=== PATIENT | female | born 1940 | race Caucasian/White ===

== ENCOUNTER 2016-12-15 18:41 | Emergency (ER) | payer MEDICARE, OTHER ==
[2016-12-15] MEDS ORDERED: methylPREDNISolone Sodium Succinate 125 MG/2 ML SDV IVPUSH ONE ×2 (18:55→18:59)
[2016-12-15] MEDS ORDERED: Sodium Chloride 0.9% 500 ML IV ONE (18:59)
[2016-12-15] MEDS ORDERED: diphenhydrAMINE 50 MG/ML SDV IVPUSH STA (18:59)
[2016-12-15] MEDS ORDERED: Famotidine/Normal Saline 20 MG in Premix Bag 1 BAG IV ONE (18:59)
[2016-12-15] MEDS ORDERED: hydrOXYzine HCl 50 MG/ML SDV IM ONE (19:01)
--- NOTE | 2016-12-15 19:06 | EDM.PDOC ---
ED HPI GENERAL MEDICAL PROBLEM - General Stated Complaint: ALLERGIC REACTION TO BEE STING Time Seen by Provider: 12/15/16 18:41 Source of Information: Reports: Patient, Family History Limitations: Reports: No Limitations - History of Present Illness INITIAL COMMENTS - FREE TEXT/NARRATIVE: 76 y.o.w.f came to the ed after she was stung by a bee and noticed she has a rash with itching and swelling of her left hand/arm. Pt has a h/o lupus E. Pt was seen in the clinic and transferred to the ed. Pt was light headed and dizzy , her BP was 88/50 but improved after she was in supine position. When she arrived, BP was 105/87. No SOB. no other acute medical issues. Onset: Today Onset Date: 12/15/16 Onset Time: 17:20 Duration: Hour(s): Location: Reports: Upper Extremity, Left Quality: Reports: Ache, Burning Severity: Mild Improves with: Reports: None Worsens with: Reports: None Associated Symptoms: Reports: Rash, Other (felt dizzy) - Related Data Allergies Allergy/AdvReac Type Severity Reaction Status Date / Time latex Allergy Hives Verified 12/15/16 18:57 Home Meds: Home Meds Famotidine [Pepcid] 20 mg PO DAILY #4 tablet 12/15/16 [Rx] hydrOXYzine Pamoate [Vistaril] 50 mg PO Q6H PRN #20 cap 12/15/16 [Rx] ED ROS GENERAL - Review of Systems Review Of Systems: See Below Constitutional: Reports: No Symptoms HEENT: Reports: No Symptoms Respiratory: Reports: No Symptoms Cardiovascular: Reports: Lightheadedness Endocrine: Reports: No Symptoms GI/Abdominal: Reports: No Symptoms : Reports: No Symptoms Musculoskeletal: Reports: No Symptoms Skin: Reports: Pruritis, Rash, Erythema Neurological: Reports: No Symptoms Psychiatric: Reports: No Symptoms Hematologic/Lymphatic: Reports: No Symptoms Immunologic: Reports: No Symptoms ED EXAM, ANIMAL BITE - Physical Exam Exam: See Below Exam Limited By: No Limitations General Appearance: Alert, WD/WN, Mild Distress, Thin Eye Exam: Bilateral Eye: Normal Inspection Ears: Normal External Exam Nose: Normal Inspection Throat/Mouth: Normal Inspection, Normal Lips Head: Atraumatic, Normocephalic Neck: Normal Inspection, Supple, Non-Tender, Full Range of Motion Respiratory/Chest: No Respiratory Distress, Lungs Clear, Normal Breath Sounds, No Accessory Muscle Use, Chest Non-Tender Cardiovascular: Normal Peripheral Pulses, Regular Rate, Rhythm, No Edema, No Gallop, No JVD, No Murmur Peripheral Pulses: 1+: Femoral (L), Femoral (R) GI/Abdominal: Normal Bowel Sounds, Soft, Non-Tender (Female) Exam: Deferred Rectal (Female) Exam: Deferred Back Exam: Normal Inspection, Full Range of Motion Extremities: Normal Inspection, Normal Range of Motion, Non-Tender Neurological: Alert, Oriented, CN II-XII Intact, Normal Cognition, No Motor/ Sensory Deficits Psychiatric: Normal Affect, Normal Mood Skin Exam: Rash Lymphadenopathy: Bilateral: No Adenopathy Lymphatic: No Adenopathy Course - Vital Signs Text/Narrative:: 76 y.o.w.f came to the ed after she was stung by a bee and noticed she has a rash with itching and swelling of her left hand/arm. Pt has a h/o lupus E. Pt was seen in the clinic and transferred to the ed. Pt was light headed and dizzy , her BP was 88/50 but improved after she was in supine position. When she arrived, BP was 105/87. No SOB. no other acute medical issues. PE: thin 76 y.o.w.f in NAD left fore arm was edematous, gen hives. Labs: See print out Impression: Urticaria, Dehydration, Bee sting, near syncopy Tx; NS. solumedrol, vistaril and pepsid. Reexam: Improved, was ambulating fine Plan: D/C with instructions Last Recorded V/S: Last Vital Signs Temp 37.2 C 12/15/16 18:41 Pulse 68 12/15/16 20:02 Resp 18 12/15/16 20:02 BP 125/51 L 12/15/16 20:02 Pulse Ox 100 12/15/16 20:02 - Orders/Labs/Meds Labs: Laboratory Tests 12/15/16 12/15/16 12/15/16 Range/Units 19:05 19:05 19:05 WBC 6.4 (4.5-12.0) X10-3/uL RBC 3.24 (3.23-5.20) x10(6)uL Hgb 10.3 L (11.5-15.5) g/dL Hct 31.1 (30.0-51.3) % MCV 96.1 H (80-96) fL MCH 31.9 (27.7-33.6) pg MCHC 33.2 (32.2-35.4) g/dL RDW 15.0 (11.5-15.5) % Plt Count 476 H (125-369) X10(3)uL MPV 8.1 (7.4-10.4) fL Neut % (Auto) 74.0 (46-82) % Lymph % (Auto) 20.4 (13-37) % Levy % (Auto) 4.5 (4-12) % Eos % (Auto) 0 L (1.0-5.0) % Baso % (Auto) 1 (0-2) % Neut # (Auto) 4.7 (1.6-8.3) # Lymph # (Auto) 1.3 (0.6-5.0) # Levy # (Auto) 0.3 (0.0-1.3) # Eos # (Auto) 0.0 (0.0-0.8) # Baso # (Auto) 0.1 (0.0-0.2) # Sodium 137 (135-145) mmol/L Potassium 3.8 (3.5-5.3) mmol/L Chloride 105 (100-110) mmol/L Carbon Dioxide 22 L (23-29) mmol/L BUN 20 (8-23) mg/dL Creatinine 1.2 (0.6-1.3) mg/dL Est Cr Clr Drug Dosing TNP Estimated GFR (MDRD) 44 L (>60) BUN/Creatinine Ratio 16.7 (9-20) Glucose 132 H (80-116) mg/dL Calcium 8.7 (8.6-10.2) mg/dL B-Natriuretic Peptide 161 H (0-100) pg/mL Meds: Medications Discontinued Medications Generic Name Dose Route Start Last Admin Trade Name Freq PRN Reason Stop Dose Admin Diphenhydramine HCl 25 mg 12/15/16 18:59 12/15/16 19:07 Benadryl IVPUSH 12/15/16 19:00 Not Given ONETIME STA Hydroxyzine HCl 50 mg 12/15/16 19:01 12/15/16 19:19 Vistaril IM 12/15/16 19:02 50 mg ONETIME ONE Administration Famotidine 20 mg/ Premix 50 mls @ 200 mls/hr 12/15/16 18:59 12/15/16 19:16 IV 12/15/16 19:00 200 mls/hr ONETIME ONE Administration Sodium Chloride 500 mls @ 999 mls/hr 12/15/16 18:59 12/15/16 19:15 Normal Saline IV 12/15/16 19:29 999 mls/hr .BOLUS ONE Administration Methylprednisolone Sodium Succinate 125 mg 12/15/16 18:55 12/15/16 18:57 Solu-Medrol IVPUSH 12/15/16 18:56 125 mg ONETIME ONE Administration Methylprednisolone Sodium Succinate 125 mg 12/15/16 18:59 12/15/16 19:07 Solu-Medrol IVPUSH 12/15/16 19:00 Not Given ONETIME ONE Departure - Departure Time of Disposition: 20:06 Disposition: Home, Self-Care 01 Condition: Good Clinical Impression: Urticaria, Vasovagal near syncope, Allergy to bee sting - Discharge Information Prescriptions: Famotidine [Pepcid] 20 mg PO DAILY #4 tablet hydrOXYzine Pamoate [Vistaril] 50 mg PO Q6H PRN #20 cap PRN Reason: itch anbd rash Instructions: Anaphylactic Reaction, [id number], Hives, Sfcv-im-[id number], Bee, Wasp, or Hornet Sting Referrals: Ashwini Johnson PA [Primary Care Provider] - Forms: ED Department Discharge Additional Instructions: Please increase water intake, please take the meds, vistaril, prednison and pepsid, as recommended. please f/u woith your PMD in next 1-3 days, please come back to the ed if your symptoms get worse acutely.
[2016-12-15 20:03] VITALS: BP 125/51
[2016-12-15] MEDS ORDERED: predniSONE 20 MG Tab PO ONE (20:13)
== END 2016-12-15 20:40 | disposition home or self-care (01) ==
LOC: FB.ED 18:41
DX: T63.441A Toxic effect of venom of bees, accidental (unintentional), initial encounter (principal); L50.9 Urticaria, unspecified; R55 Syncope and collapse; E86.0 Dehydration; Z91.040 Latex allergy status; Z79.899 Other long term (current) drug therapy
CPT/HCPCS: 36415; 80048; 83880; 85025; 96361; 96372; 96374; 96375; 99283; A9270; J2930; J3410; J7040

== ENCOUNTER 2019-01-18 06:42 | Day surgery (SDC) | payer MEDICARE, OTHER ==
[2019-01-18] MEDS ORDERED: Lidocaine 2% 5 ML SDV INJECT ONE (06:43)
[2019-01-18] MEDS ORDERED: Propofol 200 MG/20 ML SDV IV ONE ×2 (06:43)
[2019-01-18] MEDS ORDERED: Lidocaine 2% 100 MG/5 ML Syringe IVPUSH ONE (06:43)
[2019-01-18] MEDS ORDERED: Lactated Ringers 1,000 ML IV SCH (06:45)
[2019-01-18] MEDS ORDERED: Sodium Chloride 0.9% 10 ML Syringe FLUSH PRN (06:45)
--- NOTE | 2019-01-18 08:16 | PCM.OPNOTE ---
- General Post-Op/Procedure Note Date of Surgery/Procedure: 01/18/19 Operative Procedure(s): c scope Findings: sigmoid diverticulosis Pre Op Diagnosis: personal hx of colon polyps Post-Op Diagnosis: sigmoid diverticulosis Anesthesia Technique: MAC Primary Surgeon: Peter Benito Anesthesia Provider: Alice Guzman Pathology: none Complications: None Condition: Good Free Text/Narrative:: see dictation
--- NOTE | 2019-01-18 08:40 | OR ---
DATE OF OPERATION: 01/18/2019 SURGEON: Peter Benito MD PROCEDURE PERFORMED: Colonoscopy. PREOPERATIVE DIAGNOSIS: Personal history of colon polyps. POSTOPERATIVE DIAGNOSIS: Sigmoid diverticulosis. INDICATIONS FOR PROCEDURE: This is a 78-year-old white female who presents for followup scope. She has a personal history of colon polyps on recent colonoscopy several years ago, and presents now for followup endoscopy. DESCRIPTION OF OPERATION: After an excellent IV sedation was administered, digital rectal exam was performed. No marked abnormality was noted. Flexible colonoscope was inserted and advanced to the cecum without difficulty. Prep was excellent. Following findings were noted. Ascending colon, unremarkable. Transverse colon, unremarkable. Descending colon, unremarkable. Sigmoid, scattered diverticulosis. Rectum and anus, unremarkable. The patient tolerated the procedure well. RECOMMENDATIONS: Repeat colonoscopy on a p.r.n. basis. /[id number] CHASTITY/ANNIE
--- NOTE | 2019-01-18 09:35 | PREOP ---
ADMISSION DATE: 01/18/2019 CHIEF COMPLAINT: Personal history of colon polyps. HISTORY OF PRESENT ILLNESS: This is a patient who had a colonoscopy 3 years ago, 2 adenomas were removed, recommended to have a followup scope at this time. She is currently without complaints. ALLERGIES: She has an allergy to bee stings and latex. PAST MEDICAL HISTORY: Significant for systemic lupus erythematosus, essential hypertension, rheumatoid arthritis, chronic obstructive pulmonary disease, stress incontinence, morbid obesity, endometrial cancer, history of melena in the past and squamous cell carcinoma in situ. PAST SURGICAL HISTORY: Significant for cholecystectomy, colonoscopy, left total hip replacement, hysterectomy, laparoscopic gastric bypass, laparoscopic salpingo-oophorectomy, laparoscopic total hysterectomy, ORIF of right elbow fracture, and bladder suspension. MEDICATIONS: Include the followin. Ultram 50 mg 4 times a day as needed. 2. She has a 0.3 mg/0.3 mL epinephrine pen. 3. Plaquenil 200 mg tablet. 4. Prednisone 2.5 mg. 5. Sinemet 1/2 tablet for restless legs. 6. Lisinopril-hydrochlorothiazide 10-12.5 mg tablets once daily. 7. She takes an iron tablet. 8. Calcium and vitamin D. 9. Vitamin B12. 10.Apple cider vinegar. REVIEW OF SYSTEMS: Essentially noncontributory with her denying any constitutional, HEENT, eyes, respiratory, cardiovascular, or gastrointestinal issues. PHYSICAL EXAMINATION: VITAL SIGNS: Reviewed, they are stable. HEENT: Grossly within normal limits. LUNGS: Clear to auscultation. HEART: Regular rate and rhythm. ABDOMEN: Soft, nontender. ASSESSMENT: Personal history of colon polyps. PLAN: Colonoscopy. Procedure and risks explained to the patient to include bleeding, infection, and perforation. The patient expresses understanding. She asks us to proceed. /[id number] /MODL
[2019-01-18 11:35] VITALS: BP 137/55; PULSE 59
== END 2019-01-18 09:32 | disposition home or self-care (01) ==
LOC: FB.SDS 06:42
PROVIDERS: ATTEND Surgery
DX: Z12.11 Encounter for screening for malignant neoplasm of colon (principal); K57.30 Diverticulosis of large intestine without perforation or abscess without bleeding; M32.9 Systemic lupus erythematosus, unspecified; I10 Essential (primary) hypertension; M06.9 Rheumatoid arthritis, unspecified; J44.9 Chronic obstructive pulmonary disease, unspecified; Z98.84 Bariatric surgery status; Z79.899 Other long term (current) drug therapy; Z79.52 Long term (current) use of systemic steroids; Z86.010 Personal history of colon polyps; Z91.040 Latex allergy status; Z91.030 Bee allergy status
CPT/HCPCS: J2001; J2704; J7120

== ENCOUNTER 2019-10-28 16:06 | Emergency (ER) | payer MEDICARE, OTHER ==
[2019-10-28] MEDS ORDERED: Loratadine 10 MG Tab PO ONE (16:10)
[2019-10-28] MEDS ORDERED: methylPREDNISolone Sodium Succinate 125 MG/2 ML SDV IV ONE (16:10)
[2019-10-28] MEDS ORDERED: Famotidine 20 MG/2 ML SDV IVPUSH ONE (16:10)
[2019-10-28] MEDS ORDERED: diphenhydrAMINE 50 MG/ML SDV IVPUSH ONE (16:10)
[2019-10-28] MEDS ORDERED: Famotidine/Normal Saline 20 MG/50 ML BAG IV ONE (17:00)
[2019-10-28] MEDS ORDERED: Famotidine 20 MG Tab PO ONE (17:29)
[2019-10-28 18:46] VITALS: PULSE 63
[2019-10-28] MEDS ORDERED: Doxepin 25 MG Cap PO ONE (18:52)
--- NOTE | 2019-10-28 18:59 | EDM.PDOC ---
ED HPI GENERAL MEDICAL PROBLEM - General Chief Complaint: Allergic Reaction Stated Complaint: BEE STING Time Seen by Provider: 10/28/19 16:15 Source of Information: Reports: Patient History Limitations: Reports: No Limitations - History of Present Illness INITIAL COMMENTS - FREE TEXT/NARRATIVE: c/o bee sting outside, stung on R posterior shoulder, did not see bee has epi-pen that is 2y old took no meds, come to urgent care who brought her to ED, arrived 20 min after sting with c/o red and itching and swollen hands no airway issues redness and itch of hands improved 75% altho did not resolve completely after meds here on pred 2.5 mg/d baseline, has RA and lupus - Related Data Allergies Allergy/AdvReac Type Severity Reaction Status Date / Time bee venom protein (honey bee) Allergy Hives Verified 01/18/19 07:26 latex Allergy Rash Verified 01/18/19 07:26 Home Meds: Home Meds Aspirin 81 mg PO DAILY 01/17/19 [History] Vernon/D3/Mag11/Zinc/Message Broker Developer/Mumtaz/Bor [Caltrate 600+D Plus Tablet] 1 each PO QAM 01/17/19 [History] Carbidopa/Levodopa [Sinemet CR 50-200] 0.5 tab PO DAILY 01/17/19 [History] Cholecalciferol (Vitamin D3) [Vitamin D3] 1,000 unit PO DAILY 01/17/19 [History] Cider Vinegar [Apple Cider Vinegar] 300 mg PO DAILY 01/17/19 [History] Cyanocobalamin (Vitamin B12) [Vitamin B12] 1,000 mcg PO DAILY 01/17/19 [History] EPINEPHrine [Epipen] 0.3 mg IM ASDIRECTED PRN 01/17/19 [History] Hydroxychloroquine Sulfate [Plaquenil] 200 mg PO BID 01/17/19 [History] Lisinopril/Hydrochlorothiazide [Lisinopril-Hctz 10-12.5 mg Tab] 1 each PO DAILY 01/17/19 [History] cephALEXin [Keflex] 250 mg PO DAILY 01/17/19 [History] predniSONE [Prednisone] 2.5 mg PO DAILY 01/17/19 [History] traMADol [Ultram] 50 mg PO Q4H PRN 01/17/19 [History] Doxepin [SINEquan] 25 mg PO BEDTIME PRN #3 cap 10/28/19 [Rx] EPINEPHrine [Adrenaclick] 0.3 mg IM DAILY PRN #2 ml 10/28/19 [Rx] Famotidine 20 mg PO DAILY #3 tablet 10/28/19 [Rx] Loratadine 10 mg PO DAILY #3 tablet 10/28/19 [Rx] predniSONE 40 mg PO DAILY #6 tab 10/28/19 [Rx] Past Medical History HEENT History: Reports: Impaired Vision, Other (See Below) Other HEENT History: HYPEROPIA, ASTIGMATISM Cardiovascular History: Reports: Hypertension Other Respiratory History: CHRONIC AIRWAY OBSTRUCTION Other Gastrointestinal History: MELENA Genitourinary History: Reports: Urinary Incontinence Other Genitourinary History: STRESS INCONTINENCE 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: Reports: Endocrine/Metabolic History: Reports: Obesity/BMI 30+ Immunologic History: Reports: SLE Other Oncologic History: ENDOMETRIAL CANCER Dermatologic History: Reports: Melanoma Other Dermatologic History: NON-HEALING SKIN LESION - Past Surgical History HEENT Surgical History: Reports: Adenoidectomy, Tonsillectomy GI Surgical History: Reports: Bariatric Procedure, Cholecystectomy, Colonoscopy, EGD Female Surgical History: Reports: Hysterectomy Musculoskeletal Surgical History: Reports: Hip Replacement, ORIF Other Musculoskeletal Surgeries/Procedures:: Left hip replacement, metal placed Social & Family History - Family History Family Medical History: Noncontributory - Tobacco Use Smoking Status *Q: Never Smoker - Caffeine Use Caffeine Use: Reports: Coffee - Alcohol Use Days Per Week of Alcohol Use: 7 Number of Drinks Per Day: 3 Total Drinks Per Week: 21 - Recreational Drug Use Recreational Drug Use: No ED ROS ALLERGIC REACTION - Review of Systems Review Of Systems: See Below Constitutional: Reports: No Symptoms HEENT: Reports: No Symptoms Respiratory: Reports: No Symptoms Cardiovascular: Reports: No Symptoms Endocrine: Reports: No Symptoms GI/Abdominal: Reports: No Symptoms : Reports: No Symptoms Musculoskeletal: Reports: No Symptoms Skin: Reports: Rash, Change in Color, Other (itch) Neurological: Reports: No Symptoms Psychiatric: Reports: No Symptoms Hematologic/Lymphatic: Reports: No Symptoms Immunologic: Reports: No Symptoms ED EXAM GENERAL NO PERIP PULSE - Physical Exam Exam: See Below Exam Limited By: No Limitations General Appearance: Alert, WD/WN, No Apparent Distress, Other (here with , normal speech) Nose: Normal Inspection, Normal Mucosa, No Blood Throat/Mouth: Normal Lips, Normal Voice, No Airway Compromise Head: Atraumatic, Normocephalic Neck: Normal Inspection, Supple, Non-Tender, Full Range of Motion. No: Lymphadenopathy (R), Lymphadenopathy (L) Respiratory/Chest: No Respiratory Distress, Lungs Clear, Normal Breath Sounds, No Accessory Muscle Use, Chest Non-Tender Cardiovascular: Regular Rate, Rhythm, No Edema, No Murmur, No Rub GI/Abdominal: Soft, Non-Tender Back Exam: Normal Inspection Extremities: Normal Inspection, Normal Range of Motion, No Pedal Edema, Other (red hands that are dry and slightly edematous, 1+ red without elevation or wheals, redness improved altho not gone after meds) Neurological: Alert, Oriented, CN II-XII Intact, Normal Cognition, Normal Gait, No Motor/Sensory Deficits Psychiatric: Normal Affect Skin Exam: Warm, Dry, Intact Lymphatic: No Adenopathy Course - Vital Signs Last Recorded V/S: Last Vital Signs Temp 36.9 C 10/28/19 16:06 Pulse 63 10/28/19 18:01 Resp 16 10/28/19 18:01 BP 128/59 L 10/28/19 18:01 Pulse Ox 100 10/28/19 18:01 - Orders/Labs/Meds Meds: Medications Discontinued Medications Generic Name Dose Route Start Last Admin Trade Name Ricardo PRN Reason Stop Dose Admin Diphenhydramine HCl 50 mg 10/28/19 16:10 10/28/19 16:34 Benadryl IVPUSH 10/28/19 16:11 50 mg ONETIME ONE Administration Doxepin HCl 25 mg 10/28/19 18:52 Sinequan PO 10/28/19 18:53 ONETIME ONE Famotidine 20 mg 10/28/19 16:10 10/28/19 17:35 Pepcid IVPUSH 10/28/19 16:11 Not Given ONETIME ONE Famotidine 20 mg 10/28/19 17:29 10/28/19 17:36 Pepcid PO 10/28/19 17:30 20 mg ONETIME ONE Administration Famotidine 20 mg in 50 mls @ 200 mls/hr 10/28/19 17:00 10/28/19 18:43 Famotidine In Ns Premix IV 10/28/19 17:14 Not Given ONETIME ONE Loratadine 10 mg 10/28/19 16:10 10/28/19 16:34 Claritin PO 10/28/19 16:11 10 mg ONETIME ONE Administration Methylprednisolone Sodium Succinate 125 mg 10/28/19 16:10 10/28/19 16:34 Solu-Medrol IV 10/28/19 16:11 125 mg ONETIME ONE Administration - Re-Assessments/Exams Free Text/Narrative Re-Assessment/Exam: 10/28/19 19:07 will try doxepin qhs for continue itching, given dose here, given other meds as per d/c instructions Departure - Departure Time of Disposition: 18:52 Disposition: Home, Self-Care 01 Condition: Good Clinical Impression: Bee sting allergy, Redness and swelling of hand, Pruritus - Discharge Information *PRESCRIPTION DRUG MONITORING PROGRAM REVIEWED*: Not Applicable *COPY OF PRESCRIPTION DRUG MONITORING REPORT IN PATIENT BRAYAN: Not Applicable Prescriptions: EPINEPHrine [Adrenaclick] 0.3 mg IM DAILY PRN #2 ml PRN Reason: Allergies Famotidine 20 mg PO DAILY #3 tablet Loratadine 10 mg PO DAILY #3 tablet predniSONE 40 mg PO DAILY #6 tab Doxepin [SINEquan] 25 mg PO BEDTIME PRN #3 cap PRN Reason: Itching Instructions: Pruritus, Allergies, Adult Referrals: Ashwini Johnson PA [Primary Care Provider] - Forms: ED Department Discharge Additional Instructions: For itching, take loratadine 10 mg 1 tab daily for 3 days. For itching, take famotidine 20 mg 1 tab daily for 3 days. For itching, take diphenhydramine 25 mg 2 tabs 4 times a day as needed. For itching, take doxepin 25 mg 1 tab at bedtime for 3 days. For allergies, take prednisone 20 mg 2 tabs daily for 3 days, then resume your usual dose of 2.5 mg daily. 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 See your doctor in 2 days for further evaluation and instructions. Sepsis Event Note (ED) - Evaluation Sepsis Screening Result: No Definite Risk - Focused Exam Vital Signs: Vital Signs Temp Pulse Resp BP Pulse Ox 10/28/19 18:01 63 16 128/59 L 100 10/28/19 17:00 59 L 16 104/55 L 100 10/28/19 16:06 36.9 C 84 16 113/44 L 100
[2019-10-28 20:40] VITALS: BP 116/59
== END 2019-10-28 19:23 | disposition home or self-care (01) ==
LOC: FB.ED 16:06
DX: T63.441A Toxic effect of venom of bees, accidental (unintentional), initial encounter (principal); I10 Essential (primary) hypertension; J44.9 Chronic obstructive pulmonary disease, unspecified; E66.9 Obesity, unspecified; Z90.710 Acquired absence of both cervix and uterus; Z90.49 Acquired absence of other specified parts of digestive tract; Z98.890 Other specified postprocedural states; Z91.040 Latex allergy status; Z91.030 Bee allergy status; Z79.82 Long term (current) use of aspirin; Z79.899 Other long term (current) drug therapy; Z68.24 Body mass index [BMI] 24.0-24.9, adult
CPT/HCPCS: 96374; 96375; 99282; A9270; J1200; J2930; 99284

== ENCOUNTER 2020-03-03 10:58 | Emergency (ER) | payer MEDICARE, OTHER ==
[2020-03-03] MEDS ORDERED: Sodium Chloride 0.9% 500 ML IV ONE (11:23)
--- NOTE | 2020-03-03 11:29 | EDM.PDOC ---
ED HPI GENERAL MEDICAL PROBLEM - General Chief Complaint: Gastrointestinal Problem Stated Complaint: weakness Time Seen by Provider: 03/03/20 11:15 Source of Information: Reports: Patient History Limitations: Reports: No Limitations - History of Present Illness INITIAL COMMENTS - FREE TEXT/NARRATIVE: states she had flu like symptoms last weak, was seen in the clinic at the time had nausea and dry heaves did not vomit had no abd pain , had no diarrhea was screened for COVID and it was negative This am she comes in as she is feeling very weak , not able to walk , states le gs very weak no fever , no chills , no cough Onset: Today Onset Date: 03/03/20 Duration: Day(s): (2), Getting Worse Location: Reports: Abdomen, Generalized Quality: Reports: Dull Severity: Moderate Improves with: Reports: None Worsens with: Reports: None Context: Reports: Sick Contact Associated Symptoms: Reports: Loss of Appetite, Malaise, Weakness Treatments 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: Other (see below) (none) - Related Data Allergies Allergy/AdvReac Type Severity Reaction Status Date / Time bee venom protein (honey bee) Allergy Hives Verified 03/03/20 11:49 latex Allergy Rash Verified 03/03/20 11:49 Home Meds: Home Meds Aspirin 81 mg PO DAILY 01/17/19 [History] [place]/D3/Mag11/Zinc/Office Machine Installer/Mumtaz/Bor [Caltrate 600+D Plus Tablet] 1 each PO QAM 01/17/19 [History] Carbidopa/Levodopa [Sinemet CR 50-200] 0.5 tab PO DAILY 01/17/19 [History] Cholecalciferol (Vitamin D3) [Vitamin D3] 1,000 unit PO DAILY 01/17/19 [History] Cider Vinegar [Apple Cider Vinegar] 300 mg PO DAILY 01/17/19 [History] Cyanocobalamin (Vitamin B12) [Vitamin B12] 1,000 mcg PO DAILY 01/17/19 [History] EPINEPHrine [Epipen] 0.3 mg IM ASDIRECTED PRN 01/17/19 [History] Hydroxychloroquine Sulfate [Plaquenil] 200 mg PO BID 01/17/19 [History] Lisinopril/Hydrochlorothiazide [Lisinopril-Hctz 10-12.5 mg Tab] 1 each PO DAILY 01/17/19 [History] cephALEXin [Keflex] 250 mg PO DAILY 01/17/19 [History] predniSONE [Prednisone] 2.5 mg PO DAILY 01/17/19 [History] traMADol [Ultram] 50 mg PO Q4H PRN 01/17/19 [History] Doxepin [SINEquan] 25 mg PO BEDTIME PRN #3 cap 10/28/19 [Rx] EPINEPHrine [Adrenaclick] 0.3 mg IM DAILY PRN #2 ml 10/28/19 [Rx] Famotidine 20 mg PO DAILY #3 tablet 10/28/19 [Rx] Loratadine 10 mg PO DAILY #3 tablet 10/28/19 [Rx] predniSONE 40 mg PO DAILY #6 tab 10/28/19 [Rx] Past Medical History HEENT History: Reports: Impaired Vision, Other (See Below) Other HEENT History: HYPEROPIA, ASTIGMATISM Cardiovascular History: Reports: Hypertension Respiratory History: Reports: COPD Other Respiratory History: CHRONIC AIRWAY 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 Other Gastrointestinal History: MELENA Genitourinary History: Reports: Urinary Incontinence Other Genitourinary History: STRESS INCONTINENCE 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: Musculoskeletal History: Reports: Arthritis Endocrine/Metabolic History: Reports: Obesity/BMI 30+ Immunologic History: Reports: SLE Other Oncologic History: ENDOMETRIAL CANCER Dermatologic History: Reports: Melanoma Other Dermatologic History: NON-HEALING SKIN LESION - Past Surgical History HEENT Surgical History: Reports: Adenoidectomy, Tonsillectomy GI Surgical History: Reports: Bariatric Procedure, Cholecystectomy, Colonoscopy, EGD Female Surgical History: Reports: Hysterectomy Musculoskeletal Surgical History: Reports: Hip Replacement, ORIF Other Musculoskeletal Surgeries/Procedures:: Left hip replacement, metal placed Social & Family History - Family History Family Medical History: No Pertinent Family History - Caffeine Use Caffeine Use: Reports: Coffee ED ROS GENERAL - Review of Systems Review Of Systems: Comprehensive ROS is negative, except as noted in HPI. ED EXAM, GI/ABD - Physical Exam Exam: See Below Exam Limited By: No Limitations General Appearance: Alert, WD/WN, No Apparent Distress Eyes: Bilateral: EOMI Ears: Normal External Exam Nose: Normal Inspection Throat/Mouth: Normal Oropharynx Head: Atraumatic, Normocephalic Neck: Supple, Non-Tender Respiratory/Chest: Lungs Clear, Normal Breath Sounds Cardiovascular: Regular Rate, Rhythm GI/Abdominal Exam: Soft, Non-Tender, Abnormal Bowel Sounds (hypoactive) Back Exam: Full Range of Motion Extremities: Normal Inspection, Normal Range of Motion Neurological: Alert, Oriented, CN II-XII Intact Psychiatric: Normal Affect Skin Exam: Warm, Dry, Intact Lymphatic: No Adenopathy Course - Vital Signs Last Recorded V/S: Last Vital Signs Temp 36.7 C 03/03/20 12:53 Pulse 57 L 03/03/20 12:53 Resp 18 03/03/20 12:53 BP 93/51 L 03/03/20 12:53 Pulse Ox 98 03/03/20 12:53 - Orders/Labs/Meds Orders: Active Orders 24 hr Category Date Time Status CRP [C-REACTIVE PROTEIN] [CHEM] Stat Lab 03/03/20 11:50 Results PRO B-TYPE NATRIUR PEPT,BNPPRO [CHEM] Stat Lab 03/03/20 11:50 Results Labs: Laboratory Tests 03/03/20 03/03/20 03/03/20 Range/Units 11:50 11:50 11:50 WBC 5.9 (3.0-10.3) x10-3/uL RBC 2.60 L (3.60-5.20) x10(6)uL Hgb 8.2 L (11.4-15.5) g/dL Hct 24.8 L (34.2-48.2) % MCV 95.6 (76.7-100.5) fL MCH 31.6 (23.9-33.9) pg MCHC 33.1 (31.9-34.8) g/dL RDW 17.9 H (12.3-16.5) % Plt Count 363 (151-488) x10(3)uL MPV 8.5 (7.1-12.4) fL Neut % (Auto) 76.1 (30.8-76.2) % Lymph % (Auto) 9.6 L (18.4-52.1) % Major % (Auto) 12.0 (4.4-15.7) % Eos % (Auto) 0.9 (0.6-8.1) % Baso % (Auto) 1.4 (0.2-1.5) % Neut # (Auto) 4.5 (1.5-6.3) x10-3/uL Lymph # (Auto) 0.6 L (1.0-4.4) x10-3/uL Major # (Auto) 0.7 (0.3-1.0) x10-3/uL Eos # (Auto) 0.1 (0.0-0.8) x10-3/uL Baso # (Auto) 0.1 (0.0-0.1) x10-3/uL Sodium 133 L (135-145) mmol/L Potassium 3.8 (3.5-5.3) mmol/L Chloride 95 L (100-110) mmol/L Carbon Dioxide 31 (21-32) mmol/L BUN 22 H (7-18) mg/dL Creatinine 1.1 H (0.55-1.02) mg/dL Est Cr Clr Drug Dosing TNP Estimated GFR (MDRD) 48 L (>60) BUN/Creatinine Ratio 20.0 (9-20) Glucose 102 (80-116) mg/dL Calcium 7.9 L (8.6-10.2) mg/dL Total Bilirubin 0.7 (0.1-1.3) mg/dL AST 21 (5-25) IU/L ALT 7 L (12-36) U/L Alkaline Phosphatase 52 L (56-112) IU/L NT-Pro-B Natriuret Pep 2498 H* (<=450) pg/mL Total Protein 6.6 (6.0-8.0) g/dL Albumin 3.2 (3.2-4.6) g/dL Globulin 3.4 g/dL Albumin/Globulin Ratio 0.9 Urine Color (YELLOW) Urine Appearance (CLEAR) Urine pH (5.0-6.5) Ur Specific [place] (1.010-1.025) Urine Protein (NEGATIVE) mg/dL Urine Glucose (UA) (NORMAL) mg/dL Urine Ketones (NEGATIVE) mg/dL Urine Occult Blood (NEGATIVE) Urine Nitrite (NEGATIVE) Urine Bilirubin (NEGATIVE) Urine Urobilinogen (NEGATIVE) mg/dL Ur Leukocyte Esterase (NEGATIVE) Urine WBC (0-5) Ur Squamous Epith Cells (NS,R,O) Urine Bacteria (NS) 03/03/20 Range/Units 13:02 WBC (3.0-10.3) x10-3/uL RBC (3.60-5.20) x10(6)uL Hgb (11.4-15.5) g/dL Hct (34.2-48.2) % MCV (76.7-100.5) fL MCH (23.9-33.9) pg MCHC (31.9-34.8) g/dL RDW (12.3-16.5) % Plt Count (151-488) x10(3)uL MPV (7.1-12.4) fL Neut % (Auto) (30.8-76.2) % Lymph % (Auto) (18.4-52.1) % Major % (Auto) (4.4-15.7) % Eos % (Auto) (0.6-8.1) % Baso % (Auto) (0.2-1.5) % Neut # (Auto) (1.5-6.3) x10-3/uL Lymph # (Auto) (1.0-4.4) x10-3/uL Major # (Auto) (0.3-1.0) x10-3/uL Eos # (Auto) (0.0-0.8) x10-3/uL Baso # (Auto) (0.0-0.1) x10-3/uL Sodium (135-145) mmol/L Potassium (3.5-5.3) mmol/L Chloride (100-110) mmol/L Carbon Dioxide (21-32) mmol/L BUN (7-18) mg/dL Creatinine (0.55-1.02) mg/dL Est Cr Clr Drug Dosing Estimated GFR (MDRD) (>60) BUN/Creatinine Ratio (9-20) Glucose (80-116) mg/dL Calcium (8.6-10.2) mg/dL Total Bilirubin (0.1-1.3) mg/dL AST (5-25) IU/L ALT (12-36) U/L Alkaline Phosphatase (56-112) IU/L NT-Pro-B Natriuret Pep (<=450) pg/mL Total Protein (6.0-8.0) g/dL Albumin (3.2-4.6) g/dL Globulin g/dL Albumin/Globulin Ratio Urine Color Yellow (YELLOW) Urine Appearance Clear (CLEAR) Urine pH 6.0 (5.0-6.5) Ur Specific [place] 1.015 (1.010-1.025) Urine Protein Negative (NEGATIVE) mg/dL Urine Glucose (UA) Normal (NORMAL) mg/dL Urine Ketones Negative (NEGATIVE) mg/dL Urine Occult Blood Negative (NEGATIVE) Urine Nitrite Negative (NEGATIVE) Urine Bilirubin Negative (NEGATIVE) Urine Urobilinogen 1 H (NEGATIVE) mg/dL Ur Leukocyte Esterase Negative (NEGATIVE) Urine WBC 0-5 (0-5) Ur Squamous Epith Cells Few H (NS,R,O) Urine Bacteria Moderate H (NS) Meds: Medications Discontinued Medications Generic Name Dose Route Start Last Admin Trade Name Freq PRN Reason Stop Dose Admin Sodium Chloride 1,000 mls @ 999 mls/hr 03/03/20 11:30 Normal Saline IV ASDIRECTED KIRILL Sodium Chloride 500 mls @ 500 mls/hr 03/03/20 11:23 Normal Saline IV 03/03/20 12:22 .BOLUS ONE - Re-Assessments/Exams Free Text/Narrative Re-Assessment/Exam: 03/03/20 11:31 labs ordered started on IVF Departure - Departure Time of Disposition: 14:00 Disposition: Home, Self-Care 01 Clinical Impression: Generalized weakness, Chronic anemia, Dehydration, Dehydration with hyponatremia - Discharge Information *PRESCRIPTION DRUG MONITORING PROGRAM REVIEWED*: Not Applicable *COPY OF PRESCRIPTION DRUG MONITORING REPORT IN PATIENT BRAYAN: Not Applicable Referrals: Gino Alcantar MD [Primary Care Provider] - Forms: ED Department Discharge Additional Instructions: Make appointment and follow up with your PCP in one week for repat blood check You do not need transfusion today but will need at a later date Eat foods high in iron Sepsis Event Note (ED) - Focused Exam Vital Signs: Vital Signs Temp Pulse Resp BP Pulse Ox 03/03/20 12:53 36.7 C 57 L 18 93/51 L 98 - My Orders Last 24 Hours: My Active Orders 03/03/20 11:50 CRP [C-REACTIVE PROTEIN] [CHEM] Stat PRO B-TYPE NATRIUR PEPT,BNPPRO [CHEM] Stat - Assessment/Plan Last 24 Hours: My Active Orders 03/03/20 11:50 CRP [C-REACTIVE PROTEIN] [CHEM] Stat PRO B-TYPE NATRIUR PEPT,BNPPRO [CHEM] Stat
[2020-03-03] MEDS ORDERED: Sodium Chloride 0.9% 1,000 ML IV SCH (11:30)
[2020-03-03 12:55] VITALS: BP 93/51; PULSE 57
== END 2020-03-03 14:10 | disposition home or self-care (01) ==
LOC: FB.ED 10:58
DX: E87.1 Hypo-osmolality and hyponatremia (principal); E86.0 Dehydration; D64.9 Anemia, unspecified; I10 Essential (primary) hypertension; J44.9 Chronic obstructive pulmonary disease, unspecified; E66.9 Obesity, unspecified; M19.90 Unspecified osteoarthritis, unspecified site; M32.9 Systemic lupus erythematosus, unspecified; Z79.82 Long term (current) use of aspirin; Z91.030 Bee allergy status; Z91.040 Latex allergy status; Z79.899 Other long term (current) drug therapy
CPT/HCPCS: 36415; 80053; 81001; 83880; 85025; 86140; 99283; 99284; J7040

== ENCOUNTER 2020-05-13 13:50 | Emergency (ER) | payer MEDICARE, OTHER ==
[2020-05-13] MEDS ORDERED: Sodium Chloride 0.9% 10 ML Syringe FLUSH PRN (13:53)
[2020-05-13] MEDS ORDERED: Sodium Chloride 0.9% 1,000 ML IV ONE ×2 (13:53→14:17)
--- NOTE | 2020-05-13 14:22 | EDM.PDOC ---
ED HPI GENERAL MEDICAL PROBLEM - General Chief Complaint: Neuro Symptoms/Deficits Stated Complaint: UNCONSCIOUS Time Seen by Provider: 05/13/20 14:13 Source of Information: Reports: Patient, Family History Limitations: Reports: No Limitations - History of Present Illness INITIAL COMMENTS - FREE TEXT/NARRATIVE: Patient and travelled to [place] to eat lunch today. On the drive back, patient became unresponsive. Per she has had weekly episodes of postprandial weakness for the last several months, but has never completely lost consciousness as she did today. Patient had an extensive workup, but no etiology could be found. Usually she is at home when this occurs, and he just lays her down until she wakes up. brought her to the ED today because he didn't think he could lift her out of the car himself. I witnessed patient to be unresponsive to verbal or painful stimuli while seated in the passenger seat of their vehicle. She is lifted out on a gurney. Patient awoke once in the exam room, and is able to answer questions appropriately, stating she feels the need to defecate. Denies headache, chest pain, SOB, abdominal pain, F/C, cough, or N/V/D. She admits to consuming alcohol with lunch today. Onset: Sudden - Related Data Allergies Allergy/AdvReac Type Severity Reaction Status Date / Time bee venom protein (honey bee) Allergy Hives Verified 05/13/20 14:25 latex Allergy Rash Verified 05/13/20 14:25 Home Meds: Home Meds Aspirin 81 mg PO DAILY 01/17/19 [History] Carbidopa/Levodopa [Sinemet CR 50-200] 0.5 tab PO QID 01/17/19 [History] Cholecalciferol (Vitamin D3) [Vitamin D3] 1,000 unit PO DAILY 01/17/19 [History] Cyanocobalamin (Vitamin B12) [Vitamin B12] 1,000 mcg PO DAILY 01/17/19 [History] predniSONE [Prednisone] 2.5 mg PO DAILY 01/17/19 [History] traMADol [Ultram] 50 mg PO Q4H PRN 01/17/19 [History] Calcium Carb/Vitamin D3/Vit K1 [Calcium + D Soft Chewable Tab] 1 tab PO DAILY 05/13/20 [History] Primidone 50 mg PO BEDTIME 05/13/20 [History] hydroCHLOROthiazide [Hydrochlorothiazide] 25 mg PO DAILY 05/13/20 [History] Past Medical History HEENT History: Reports: Impaired Vision, Other (See Below) Other HEENT History: HYPEROPIA, ASTIGMATISM Cardiovascular History: Reports: Hypertension Respiratory History: Reports: COPD Other Respiratory History: CHRONIC AIRWAY OBSTRUCTION Other Gastrointestinal History: MELENA Genitourinary History: Reports: Urinary Incontinence Other Genitourinary History: STRESS INCONTINENCE 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: Musculoskeletal History: Reports: Arthritis Endocrine/Metabolic History: Reports: Obesity/BMI 30+ Immunologic History: Reports: SLE Other Oncologic History: ENDOMETRIAL CANCER Dermatologic History: Reports: Melanoma Other Dermatologic History: NON-HEALING SKIN LESION - Past Surgical History HEENT Surgical History: Reports: Adenoidectomy, Tonsillectomy GI Surgical History: Reports: Bariatric Procedure, Cholecystectomy, Colonoscopy, EGD Female Surgical History: Reports: Hysterectomy Musculoskeletal Surgical History: Reports: Hip Replacement, ORIF Other Musculoskeletal Surgeries/Procedures:: Left hip replacement, metal placed Social & Family History - Family History Family Medical History: No Pertinent Family History - Caffeine Use Caffeine Use: Reports: Coffee - Alcohol Use Alcohol Use History: Yes ED ROS GENERAL - Review of Systems Review Of Systems: Comprehensive ROS is negative, except as noted in HPI. ED EXAM, NEURO - Physical Exam Exam: See Below Exam Limited By: No Limitations General Appearance: No Apparent Distress, Lethargic Eye Exam: Bilateral Eye: EOMI, PERRL Ears: Normal External Exam Nose: Normal Inspection Throat/Mouth: Normal Inspection, No Airway Compromise Head Exam: Atraumatic, Normocephalic Neck: Supple Respiratory/Chest: No Respiratory Distress, Lungs Clear, Normal Breath Sounds Cardiovascular: Regular Rate, Rhythm, No Gallop, No Murmur GI/Abdominal: Normal Bowel Sounds, Soft, Non-Tender, No Distention Neurological: CN II-XII Intact, No Motor/Sensory Deficits, Oriented x 3, Other (GCS 14 (E3, V5, M6), NIHSS score=0) Extremities: Normal Range of Motion Psychiatric: Normal Affect, Normal Mood Skin Exam: Warm, Dry, Intact, Normal Color, No Rash #1 Interpretation EKG Date: 05/13/20 Time: 14:48 Rhythm: NSR Rate (Beats/Min): 70 [place]: Normal P-Wave: Present QRS: Other (LVH) ST-T: Depressed (lateral leads) QT: Normal Course - Vital Signs Text/Narrative:: Initial vitals: T97.6, HR 74, RR 14, BP 57/42, Sa02 96%RA - Orders/Labs/Meds Orders: Active Orders 24 hr Category Date Time Status Accu Check [Blood Glucose Check, Bedside] [RC] .once Care 05/13/20 13:54 Active EKG Documentation Completion [RC] ASDIRECTED Care 05/13/20 13:53 Active CTA Abd Pelv w Cont [CT] Stat Exams 05/13/20 15:27 Taken CULTURE BLOOD [BC] Urgent Lab 05/13/20 14:10 Received CULTURE BLOOD [BC] Urgent Lab 05/13/20 14:30 Received LACTIC ACID [CHEM] Routine Lab 05/13/20 16:00 Ordered TROPONIN I [CHEM] Routine Lab 05/13/20 16:00 Ordered Heparin Sodium/0.45% NaCl [Heparin 25,000 Units in 1/2 Med 05/13/20 15:30 Active NS 500 ML] 25,000 units in 500 ml IV TITRATE Sodium Chloride 0.9% [Normal Saline] 1,000 ml Med 05/13/20 16:15 Active IV ASDIRECTED Sodium Chloride 0.9% [Saline Flush] Med 05/13/20 13:53 Active 10 ml FLUSH ASDIRECTED PRN Vancomycin/Water for INJ (PEG) [Vancomycin 1 GM/200 ML Med 05/13/20 15:00 Active Premix] 200 ml IV ONETIME Blood Culture x2 Reflex Set [OM.PC] Urgent Oth 05/13/20 14:05 Ordered Saline Lock Insert [OM.PC] Routine Oth 05/13/20 13:53 Ordered EKG 12 Lead [EK] Stat Ther 05/13/20 13:52 Ordered Medication Orders Vancomycin HCl (Vancomycin 1 Gm/200 Ml Premix) 200 mls @ 133.605 mls/hr IV ONETIME ONE Stop: 05/13/20 16:29 Last Admin: 05/13/20 14:56 Dose: 133.605 mls/hr Documented by: DIFFCAL Heparin Sodium/Sodium Chloride (Heparin 25,000 Units In 1/2 Ns 500 Ml) 25,000 units in 500 mls @ 12.519 mls/hr IV TITRATE KIRILL; Protocol Last Admin: 05/13/20 15:50 Dose: 12 units/kg/hr, 12.519 mls/hr Documented by: MIGUEL Cosigned by: BENEAMI Sodium Chloride (Normal Saline) 1,000 mls @ 100 mls/hr IV ASDIRECTED KIRILL Last Admin: 05/13/20 16:05 Dose: 100 mls/hr Documented by: MIGUEL Sodium Chloride (Saline Flush) 10 ml FLUSH ASDIRECTED PRN PRN Reason: Keep Vein Open Labs: Laboratory Tests 05/13/20 05/13/20 05/13/20 Range/Units 14:10 14:10 14:10 WBC 6.8 (3.0-10.3) x10-3/uL RBC 2.59 L (3.60-5.20) x10(6)uL Hgb 8.4 L (11.4-15.5) g/dL Hct 25.9 L (34.2-48.2) % MCV 99.9 (76.7-100.5) fL MCH 32.4 (23.9-33.9) pg MCHC 32.5 (31.9-34.8) g/dL RDW 19.5 H (12.3-16.5) % Plt Count 544 H (151-488) x10(3)uL MPV 7.8 (7.1-12.4) fL Neut % (Auto) 71.3 (30.8-76.2) % Lymph % (Auto) 20.5 (18.4-52.1) % Carbon % (Auto) 6.9 (4.4-15.7) % Eos % (Auto) 0.5 L (0.6-8.1) % Baso % (Auto) 0.8 (0.2-1.5) % Neut # (Auto) 4.9 (1.5-6.3) x10-3/uL Lymph # (Auto) 1.4 (1.0-4.4) x10-3/uL Carbon # (Auto) 0.5 (0.3-1.0) x10-3/uL Eos # (Auto) 0.0 (0.0-0.8) x10-3/uL Baso # (Auto) 0.1 (0.0-0.1) x10-3/uL PT 11.2 H (9.0-11.1) sec INR 1.04 (1.00-1.24) APTT 22.7 L (24.4-33.2) SECONDS Sodium 135 (135-145) mmol/L Potassium 3.4 L (3.5-5.3) mmol/L Chloride 99 L (100-110) mmol/L Carbon Dioxide 24 (21-32) mmol/L BUN 25 H (7-18) mg/dL Creatinine 1.3 H (0.55-1.02) mg/dL Est Cr Clr Drug Dosing 26.03 mL/min Estimated GFR (MDRD) 40 L (>60) BUN/Creatinine Ratio 19.2 (9-20) Glucose 160 H (80-116) mg/dL Lactic Acid (0.4-2.0) mmol/L Calcium 8.6 (8.6-10.2) mg/dL Total Bilirubin 0.8 (0.1-1.3) mg/dL AST 23 (5-25) IU/L ALT 9 L D (12-36) U/L Alkaline Phosphatase 69 (56-112) IU/L Troponin I (4.0-60.3) pg/mL Total Protein 7.0 (6.0-8.0) g/dL Albumin 3.5 (3.2-4.6) g/dL Globulin 3.5 g/dL Albumin/Globulin Ratio 1.0 Urine Color (YELLOW) Urine Appearance (CLEAR) Urine pH (5.0-6.5) Ur Specific [place] (1.010-1.025) Urine Protein (NEGATIVE) mg/dL Urine Glucose (UA) (NORMAL) mg/dL Urine Ketones (NEGATIVE) mg/dL Urine Occult Blood (NEGATIVE) Urine Nitrite (NEGATIVE) Urine Bilirubin (NEGATIVE) Urine Urobilinogen (NEGATIVE) mg/dL Ur Leukocyte Esterase (NEGATIVE) Urine RBC (0-5) Urine WBC (0-5) Ur Squamous Epith Cells (NS,R,O) Urine Bacteria (NS) Urine Opiates Screen (NEGATIVE) Ur Oxycodone Screen (NEGATIVE) Ur Propoxyphene Screen (NEGATIVE) Ur Barbituates Screen (NEGATIVE) Ur Tricyclics Screen (NEGATIVE) Ur Phencyclidine Scrn (NEGATIVE) Ur Amphetamine Screen (NEGATIVE) Urine MDMA Screen (NEGATIVE) U Benzodiazepines Scrn (NEGATIVE) U Cocaine Metab Screen (NEGATIVE) U Marijuana (THC) Screen (NEGATIVE) Ethyl Alcohol (<0.03) % 05/13/20 05/13/20 05/13/20 Range/Units 14:10 14:10 14:45 WBC (3.0-10.3) x10-3/uL RBC (3.60-5.20) x10(6)uL Hgb (11.4-15.5) g/dL Hct (34.2-48.2) % MCV (76.7-100.5) fL MCH (23.9-33.9) pg MCHC (31.9-34.8) g/dL RDW (12.3-16.5) % Plt Count (151-488) x10(3)uL MPV (7.1-12.4) fL Neut % (Auto) (30.8-76.2) % Lymph % (Auto) (18.4-52.1) % Carbon % (Auto) (4.4-15.7) % Eos % (Auto) (0.6-8.1) % Baso % (Auto) (0.2-1.5) % Neut # (Auto) (1.5-6.3) x10-3/uL Lymph # (Auto) (1.0-4.4) x10-3/uL Carbon # (Auto) (0.3-1.0) x10-3/uL Eos # (Auto) (0.0-0.8) x10-3/uL Baso # (Auto) (0.0-0.1) x10-3/uL PT (9.0-11.1) sec INR (1.00-1.24) APTT (24.4-33.2) SECONDS Sodium (135-145) mmol/L Potassium (3.5-5.3) mmol/L Chloride (100-110) mmol/L Carbon Dioxide (21-32) mmol/L BUN (7-18) mg/dL Creatinine (0.55-1.02) mg/dL Est Cr Clr Drug Dosing mL/min Estimated GFR (MDRD) (>60) BUN/Creatinine Ratio (9-20) Glucose (80-116) mg/dL Lactic Acid 5.0 H* (0.4-2.0) mmol/L Calcium (8.6-10.2) mg/dL Total Bilirubin (0.1-1.3) mg/dL AST (5-25) IU/L ALT (12-36) U/L Alkaline Phosphatase (56-112) IU/L Troponin I 161.6 H* (4.0-60.3) pg/mL Total Protein (6.0-8.0) g/dL Albumin (3.2-4.6) g/dL Globulin g/dL Albumin/Globulin Ratio Urine Color Yellow (YELLOW) Urine Appearance Clear (CLEAR) Urine pH 6.0 (5.0-6.5) Ur Specific [place] 1.020 (1.010-1.025) Urine Protein Negative (NEGATIVE) mg/dL Urine Glucose (UA) Normal (NORMAL) mg/dL Urine Ketones Negative (NEGATIVE) mg/dL Urine Occult Blood Negative (NEGATIVE) Urine Nitrite Negative (NEGATIVE) Urine Bilirubin Negative (NEGATIVE) Urine Urobilinogen Normal (NEGATIVE) mg/dL Ur Leukocyte Esterase Negative (NEGATIVE) Urine RBC 0-5 (0-5) Urine WBC 0-5 (0-5) Ur Squamous Epith Cells Occasional (NS,R,O) Urine Bacteria Occasional H (NS) Urine Opiates Screen (NEGATIVE) Ur Oxycodone Screen (NEGATIVE) Ur Propoxyphene Screen (NEGATIVE) Ur Barbituates Screen (NEGATIVE) Ur Tricyclics Screen (NEGATIVE) Ur Phencyclidine Scrn (NEGATIVE) Ur Amphetamine Screen (NEGATIVE) Urine MDMA Screen (NEGATIVE) U Benzodiazepines Scrn (NEGATIVE) U Cocaine Metab Screen (NEGATIVE) U Marijuana (THC) Screen (NEGATIVE) Ethyl Alcohol < 0.03 (<0.03) % 05/13/20 Range/Units 14:45 WBC (3.0-10.3) x10-3/uL RBC (3.60-5.20) x10(6)uL Hgb (11.4-15.5) g/dL Hct (34.2-48.2) % MCV (76.7-100.5) fL MCH (23.9-33.9) pg MCHC (31.9-34.8) g/dL RDW (12.3-16.5) % Plt Count (151-488) x10(3)uL MPV (7.1-12.4) fL Neut % (Auto) (30.8-76.2) % Lymph % (Auto) (18.4-52.1) % Carbon % (Auto) (4.4-15.7) % Eos % (Auto) (0.6-8.1) % Baso % (Auto) (0.2-1.5) % Neut # (Auto) (1.5-6.3) x10-3/uL Lymph # (Auto) (1.0-4.4) x10-3/uL Carbon # (Auto) (0.3-1.0) x10-3/uL Eos # (Auto) (0.0-0.8) x10-3/uL Baso # (Auto) (0.0-0.1) x10-3/uL PT (9.0-11.1) sec INR (1.00-1.24) APTT (24.4-33.2) SECONDS Sodium (135-145) mmol/L Potassium (3.5-5.3) mmol/L Chloride (100-110) mmol/L Carbon Dioxide (21-32) mmol/L BUN (7-18) mg/dL Creatinine (0.55-1.02) mg/dL Est Cr Clr Drug Dosing mL/min Estimated GFR (MDRD) (>60) BUN/Creatinine Ratio (9-20) Glucose (80-116) mg/dL Lactic Acid (0.4-2.0) mmol/L Calcium (8.6-10.2) mg/dL Total Bilirubin (0.1-1.3) mg/dL AST (5-25) IU/L ALT (12-36) U/L Alkaline Phosphatase (56-112) IU/L Troponin I (4.0-60.3) pg/mL Total Protein (6.0-8.0) g/dL Albumin (3.2-4.6) g/dL Globulin g/dL Albumin/Globulin Ratio Urine Color (YELLOW) Urine Appearance (CLEAR) Urine pH (5.0-6.5) Ur Specific [place] (1.010-1.025) Urine Protein (NEGATIVE) mg/dL Urine Glucose (UA) (NORMAL) mg/dL Urine Ketones (NEGATIVE) mg/dL Urine Occult Blood (NEGATIVE) Urine Nitrite (NEGATIVE) Urine Bilirubin (NEGATIVE) Urine Urobilinogen (NEGATIVE) mg/dL Ur Leukocyte Esterase (NEGATIVE) Urine RBC (0-5) Urine WBC (0-5) Ur Squamous Epith Cells (NS,R,O) Urine Bacteria (NS) Urine Opiates Screen Negative (NEGATIVE) Ur Oxycodone Screen Negative (NEGATIVE) Ur Propoxyphene Screen Negative (NEGATIVE) Ur Barbituates Screen Positive H (NEGATIVE) Ur Tricyclics Screen Negative (NEGATIVE) Ur Phencyclidine Scrn Negative (NEGATIVE) Ur Amphetamine Screen Negative (NEGATIVE) Urine MDMA Screen Negative (NEGATIVE) U Benzodiazepines Scrn Negative (NEGATIVE) U Cocaine Metab Screen Negative (NEGATIVE) U Marijuana (THC) Screen Negative (NEGATIVE) Ethyl Alcohol (<0.03) % Meds: Medications Generic Name Dose Route Start Last Admin Trade Name Freq PRN Reason Stop Dose Admin Vancomycin HCl 200 mls @ 133.605 mls/hr 05/13/20 15:00 05/13/20 14:56 Vancomycin 1 Gm/200 Ml Premix IV 05/13/20 16:29 133.605 mls/hr ONETIME ONE Administration Heparin Sodium/Sodium Chloride 25,000 units in 500 mls @ 12.519 mls/hr 05/13/20 15:30 05/13/20 15:50 Heparin 25,000 Units In 1/2 Ns 500 Ml IV 12 units/kg/hr TITRATE KIRILL 12.519 mls/hr Administration Protocol 12 UNITS/KG/HR Sodium Chloride 1,000 mls @ 100 mls/hr 05/13/20 16:15 05/13/20 16:05 Normal Saline IV 100 mls/hr ASDIRECTED KIRILL Administration Sodium Chloride 10 ml 05/13/20 13:53 Saline Flush FLUSH ASDIRECTED PRN Keep Vein Open Discontinued Medications Generic Name Dose Route Start Last Admin Trade Name Freq PRN Reason Stop Dose Admin Acetaminophen 650 mg 05/13/20 14:55 05/13/20 15:01 Tylenol RECTAL 05/13/20 14:56 650 mg NOW ONE Administration Aspirin 324 mg 05/13/20 15:29 05/13/20 15:35 Aspirin PO 05/13/20 15:30 324 mg ONETIME ONE Administration Heparin Sodium (Porcine) 2,600 units 05/13/20 15:29 05/13/20 15:43 Heparin Sodium IVPUSH 05/13/20 15:30 2,600 units ONETIME ONE Administration Sodium Chloride 1,000 mls @ 999 mls/min 05/13/20 13:53 Normal Saline IV 05/13/20 13:54 .BOLUS ONE Sodium Chloride 1,000 mls @ 999 mls/hr 05/13/20 14:17 Normal Saline IV 05/13/20 15:17 .BOLUS ONE Piperacillin Sod/Tazobactam 50 mls @ 100 mls/hr 05/13/20 14:46 05/13/20 14:53 Sod 3.375 gm/ Sodium Chloride IV 05/13/20 15:15 100 mls/hr .ONCE ONE Administration Iopamidol 75 ml 05/13/20 15:14 05/13/20 15:29 Isovue-370 (76%) IV 05/13/20 15:15 75 ml . DIRECTED ONE Administration - Radiology Interpretation Free Text/Narrative:: CXR: No acute process. (Dr. North) CT Head: No acute intracranial process. (Dr. North) CTA Abdomen: No Aortic aneurysm or dissection. Fluid filled loops of small bowel. No obstruction or free air. (verbal rpt from Dr. North) - Re-Assessments/Exams Free Text/Narrative Re-Assessment/Exam: 05/13/20 15:52 BP improved from 57/42 to 123/54 after NS 2L IV. GCS=15. Patient feels better, A+Ox3, denies chest pain or SOB. Patient was given Tylenol 650mg AL for chills. No documented fever in the ED. 05/13/20 16:04 Dr. Lew accepts transfer to [facility], will transport by ALS ground. Departure - Departure Time of Disposition: 16:06 Disposition: DC/Tfer to Acute Hospital 02 Condition: Fair Clinical Impression: Sepsis associated hypotension, NSTEMI (non-ST elevated myocardial infarction) Syncope Qualifiers: Syncope type: unspecified Qualified Code(s): R55 - Syncope and collapse - Discharge Information Referrals: Gino Alcantar MD [Primary Care Provider] - Forms: ED Department Discharge - My Orders Last 24 Hours: My Active Orders 05/13/20 13:52 EKG 12 Lead [EK] Stat 05/13/20 13:53 EKG Documentation Completion [RC] ASDIRECTED Sodium Chloride 0.9% [Saline Flush] 10 ml FLUSH ASDIRECTED PRN Saline Lock Insert [OM.PC] Routine 05/13/20 13:54 Accu Check [Blood Glucose Check, Bedside] [RC] .once 05/13/20 14:05 Blood Culture x2 Reflex Set [OM.PC] Urgent 05/13/20 14:10 CULTURE BLOOD [BC] Urgent 05/13/20 14:30 CULTURE BLOOD [BC] Urgent 05/13/20 15:00 Vancomycin/Water for INJ (PEG) [Vancomycin 1 GM/200 ML Premix] 200 ml IV ONETIME 05/13/20 15:27 CTA Abd Pelv w Cont [CT] Stat 05/13/20 15:30 Heparin Sodium/0.45% NaCl [Heparin 25,000 Units in 1/2 NS 500 ML] 25,000 units in 500 ml IV TITRATE 05/13/20 16:00 LACTIC ACID [CHEM] Routine TROPONIN I [CHEM] Routine 05/13/20 16:15 Sodium Chloride 0.9% [Normal Saline] 1,000 ml IV ASDIRECTED - Assessment/Plan Last 24 Hours: My Active Orders 05/13/20 13:52 EKG 12 Lead [EK] Stat 05/13/20 13:53 EKG Documentation Completion [RC] ASDIRECTED Sodium Chloride 0.9% [Saline Flush] 10 ml FLUSH ASDIRECTED PRN Saline Lock Insert [OM.PC] Routine 05/13/20 13:54 Accu Check [Blood Glucose Check, Bedside] [RC] .once 05/13/20 14:05 Blood Culture x2 Reflex Set [OM.PC] Urgent 05/13/20 14:10 CULTURE BLOOD [BC] Urgent 05/13/20 14:30 CULTURE BLOOD [BC] Urgent 05/13/20 15:00 Vancomycin/Water for INJ (PEG) [Vancomycin 1 GM/200 ML Premix] 200 ml IV ONETIME 05/13/20 15:27 CTA Abd Pelv w Cont [CT] Stat 05/13/20 15:30 Heparin Sodium/0.45% NaCl [Heparin 25,000 Units in 1/2 NS 500 ML] 25,000 units in 500 ml IV TITRATE 05/13/20 16:00 LACTIC ACID [CHEM] Routine TROPONIN I [CHEM] Routine 05/13/20 16:15 Sodium Chloride 0.9% [Normal Saline] 1,000 ml IV ASDIRECTED
[2020-05-13] MEDS ORDERED: Piperacillin/Tazobactam 3.375 GM in Sodium Chloride 0.9% 50 ML IV ONE (14:46)
[2020-05-13] MEDS ORDERED: Acetaminophen 650 MG Supp RECTAL ONE (14:55)
[2020-05-13] MEDS ORDERED: Iopamidol 755 Mg/ML 100 ML Bottle IV ONE (15:14)
--- NOTE | 2020-05-13 15:25 | CT ---
INDICATION: Altered level of consciousness. CT HEAD WITHOUT CONTRAST: Spiral 3.75 mm axial sections were obtained through the brain without contrast 05/13/20 - no comparisons. Axial, sagittal and coronal reconstructions were obtained. Total exam DLP was 1348.07 mGy-cm. A retention cyst of moderate size is noted at the base of the right maxillary antrum. Paranasal sinuses and mastoid air cells were otherwise well aerated. No cranial abnormality was seen. Internal carotid artery calcifications are suggested. The orbits appear to be intact. Small low-density abnormality in the basal ganglia on the left is compatible with a small lacunar infarct. White matter changes are noted frontoparietal for the most part, compatible with microvascular disease-type changes, although other cause of leukoencephalopathy cannot be excluded. No bleeding site or hematoma was seen. No shift of midline structures was noted. The ventricles are somewhat prominent, suggesting a mild to moderate degree of central atrophy. IMPRESSION: 1. No acute intracranial abnormality. 2. Cerebrovascular disease with microvascular disease-type changes in the white matter and mild central atrophy. 3. Probable small lacunar infarct left basal ganglia. Report was called to Dr. Renteria at 1457 hours. [facility]
--- NOTE | 2020-05-13 15:27 | CR ---
INDICATION: Syncope. Decreased blood pressure. CHEST, ONE VIEW: AP supine view of the chest obtained portable 05/13/20 was compared with 12/13/09. The heart did not appear grossly enlarged. The aorta is tortuous with calcification of the arch. Overlying EKG leads are noted. Degenerative changes and impingement are noted at the shoulder joints. An active infiltrate or effusion was not identified. IMPRESSION: No acute process. Multiple findings, as noted above. [facility]
[2020-05-13] MEDS ORDERED: Aspirin 81 MG Tab.Chew PO ONE (15:29)
[2020-05-13] MEDS ORDERED: Heparin Sodium 5,000 Units/ML Vial IVPUSH ONE (15:29)
[2020-05-13] MEDS ORDERED: Heparin Sodium/0.45% NaCl 25,000 UNITS/500 ML BAG IV SCH (15:30)
[2020-05-13] MEDS ORDERED: Sodium Chloride 0.9% 1,000 ML IV SCH (16:15)
--- NOTE | 2020-05-13 16:19 | CT ---
INDICATION: Syncope, rule out abdominal aortic aneurysm. COMPUTERIZED TOMOGRAPHY ANGIOGRAPHY OF THE ABDOMEN AND PELVIS WITH CONTRAST: Spiral 2.5 mm axial sections were obtained through abdomen and pelvis with 75 mL Isovue-370 at 3 cc per second with sagittal and coronal reconstructions 05/13/20 - no comparison. Total exam DLP was 362.23 mGy-cm. Centrilobular emphysematous appearing changes are noted of moderate degree. A definite active infiltrate or effusion was not identified. Mild renal cortical scarring is noted bilaterally - a tiny low-density lesion in the anterior cortex of the right kidney may represent a cystic structure, but is too small to differentiate. No significant appearing mass was seen in the kidneys. No obstructive uropathy was seen. No retroperitoneal masses were identified. There are some calcifications in the abdominal aorta and in the renal arteries with a few calcifications in the splenic artery, calcifications in the iliac and femoral arteries. What appears to be the appendix appeared normal visualized on axial images 149 to 152. No definite free air or bowel obstruction was seen. There are multiple loops of distal small bowel which are slightly distended with fluid raising question of a process such as gastroenteritis. This should be correlated clinically. The lower most pelvis was not adequately visualized partly due to hard beam artifact from total hip arthroplasty on the left. Degenerative disk disease and hypertrophic degenerative changes are noted in the lumbar spine with a mild dextroconcave scoliosis. IMPRESSION: 1. No evidence of dissection or abdominal aortic aneurysm - there is evidence of atherosclerosis. 2. Post cholecystectomy. 3. Emphysema - centrilobular. 4. Degenerative changes, disk disease, scoliosis lumbar spine. 5. Mild renal cortical scarring. 6. Slightly distended distal small bowel loops filled with fluid raising question of a process such as gastroenteritis - correlate clinically. 7. Postsurgical changes at the epigastrium raising question of gastric bypass surgery. Report was given by phone to Dr. Renteria at 1538 hours. [facility]
[2020-05-13 18:25] VITALS: PULSE 60
== END 2020-05-13 17:20 ==
LOC: FB.ED 13:50
DX: A41.9 Sepsis, unspecified organism (principal); I95.9 Hypotension, unspecified; I21.4 Non-ST elevation (NSTEMI) myocardial infarction; I10 Essential (primary) hypertension; J44.9 Chronic obstructive pulmonary disease, unspecified; M19.90 Unspecified osteoarthritis, unspecified site; E66.9 Obesity, unspecified; Z68.22 Body mass index [BMI] 22.0-22.9, adult; Z91.030 Bee allergy status; Z91.040 Latex allergy status; Z79.82 Long term (current) use of aspirin; Z79.899 Other long term (current) drug therapy
CPT/HCPCS: 36415; 70450; 71045; 74174; 80053; 80305; 80307; 81001; 82272; 83605; 84484; 85025; 85610; 85730; 87040; 93005; 96365; 96366; 96368; 99285; A9270; J1644; J2543; J3370; J7030; Q9967; 93010

== ENCOUNTER 2021-10-26 15:56 | Inpatient (IN) | payer MEDICARE, OTHER ==
[2021-10-26] MEDS ORDERED: LORazepam 2 MG/ML SDV IV PRN (16:10)
[2021-10-26] MEDS ORDERED: Sodium Chloride 0.9% 1,000 ML IV SCH (16:15)
[2021-10-26 17:09] LABS: ESTIMATED GFR 75 mL/min (>60)
[2021-10-26] MEDS: Carbidopa/Levodopa 25-100 MG Tab PO SCH ×2 (17:53→21:22)
[2021-10-26] MEDS ORDERED: Carbidopa/Levodopa 10-100 MG Tab PO SCH (18:00)
[2021-10-26] MEDS ORDERED: Carbidopa/Levodopa 25-100 MG Tab PO SCH ×2 (18:00→21:00)
[2021-10-26] MEDS: Enoxaparin 40 MG/0.4 ML Syringe SUBCUT SCH (21:22)
[2021-10-26] MEDS: Potassium Chloride 20 MEQ Tab.ER PO SCH (21:22)
[2021-10-27] MEDS: Carbidopa/Levodopa 25-100 MG Tab PO SCH ×6 (01:12→21:15)
[2021-10-27] MEDS ORDERED: Lactated Ringers 1,000 ML IV SCH (06:00)
[2021-10-27 06:54] LABS: ESTIMATED GFR 88 mL/min (>60)
[2021-10-27] MEDS: Hydroxychloroquine 200 MG Tab PO SCH (09:15)
[2021-10-27] MEDS: Hydrochlorothiazide 25 MG Tab PO SCH (09:15)
[2021-10-27] MEDS: Potassium Chloride 20 MEQ Tab.ER PO SCH ×2 (09:16→20:03)
[2021-10-27] MEDS: Cyanocobalamin (Vitamin B12) 1,000 MCG Tab PO SCH (09:21)
[2021-10-27] MEDS: Cholecalciferol (Vitamin D3) 25 MCG Tab PO SCH (09:21)
[2021-10-27] MEDS: Enoxaparin 40 MG/0.4 ML Syringe SUBCUT SCH (20:04)
[2021-10-28] MEDS: Carbidopa/Levodopa 25-100 MG Tab PO SCH ×6 (01:21→21:29)
[2021-10-28 06:33] LABS: ESTIMATED GFR 91 mL/min (>60)
[2021-10-28] MEDS: Hydrochlorothiazide 25 MG Tab PO SCH (08:18)
[2021-10-28] MEDS: Hydroxychloroquine 200 MG Tab PO SCH (08:18)
[2021-10-28] MEDS: Cyanocobalamin (Vitamin B12) 1,000 MCG Tab PO SCH (08:19)
[2021-10-28] MEDS: Potassium Chloride 20 MEQ Tab.ER PO SCH ×2 (08:19→20:00)
[2021-10-28] MEDS: Cholecalciferol (Vitamin D3) 25 MCG Tab PO SCH (08:19)
[2021-10-28] MEDS: Enoxaparin 40 MG/0.4 ML Syringe SUBCUT SCH (20:03)
[2021-10-29] MEDS: Carbidopa/Levodopa 25-100 MG Tab PO SCH ×2 (01:01→05:47)
[2021-10-29 07:02] LABS: ESTIMATED GFR 95 mL/min (>60)
[2021-10-29 07:53] VITALS: BP 116/59; PULSE 55
[2021-10-29] MEDS: Hydrochlorothiazide 25 MG Tab PO SCH (08:02)
[2021-10-29] MEDS: Hydroxychloroquine 200 MG Tab PO SCH (08:02)
[2021-10-29] MEDS: Cholecalciferol (Vitamin D3) 25 MCG Tab PO SCH (08:02)
[2021-10-29] MEDS: Potassium Chloride 20 MEQ Tab.ER PO SCH (08:03)
[2021-10-29] MEDS: Cyanocobalamin (Vitamin B12) 1,000 MCG Tab PO SCH (08:03)
== END 2021-10-29 09:58 | disposition swing bed (61) | DRG 812 ==
LOC: FB.MS 16:21
PROVIDERS: ADMIT Family Medicine; ATTEND Family Medicine
DX: D64.9 Anemia, unspecified (principal); I24.8 Other forms of acute ischemic heart disease; E85.4 Organ-limited amyloidosis; E86.0 Dehydration; G25.81 Restless legs syndrome; R63.4 Abnormal weight loss; M06.9 Rheumatoid arthritis, unspecified; M32.9 Systemic lupus erythematosus, unspecified; H54.7 Unspecified visual loss; I27.20 Pulmonary hypertension, unspecified; R62.7 Adult failure to thrive; I10 Essential (primary) hypertension; J44.9 Chronic obstructive pulmonary disease, unspecified; K57.90 Diverticulosis of intestine, part unspecified, without perforation or abscess without bleeding; N39.3 Stress incontinence (female) (male); Z96.642 Presence of left artificial hip joint; Z20.822 Contact with and (suspected) exposure to COVID-19; T50.905A Adverse effect of unspecified drugs, medicaments and biological substances, initial encounter; Z85.3 Personal history of malignant neoplasm of breast; Z85.42 Personal history of malignant neoplasm of other parts of uterus; Z91.040 Latex allergy status; Z91.030 Bee allergy status; Z98.84 Bariatric surgery status; Z79.82 Long term (current) use of aspirin; Z79.899 Other long term (current) drug therapy; I25.2 Old myocardial infarction; Z85.820 Personal history of malignant melanoma of skin; Z90.89 Acquired absence of other organs; Z90.49 Acquired absence of other specified parts of digestive tract; Z90.710 Acquired absence of both cervix and uterus; F41.1 Generalized anxiety disorder
CPT/HCPCS: 36415; 71046; 80053; 81001; 82947; 83735; 84100; 84484; 85025; 93005; 93306; 97161-GP; 97166-GO; A9270-GY; J1650; J7030; J7120; J7512; U0002

== ENCOUNTER 2021-10-29 10:04 | Inpatient (IN) | payer MEDICARE, OTHER ==
[2021-10-29] MEDS: Carbidopa/Levodopa 25-100 MG Tab PO SCH ×4 (10:38→21:43)
[2021-10-29] MEDS: Potassium Chloride 20 MEQ Tab.ER PO SCH (20:29)
[2021-10-30] MEDS: Carbidopa/Levodopa 25-100 MG Tab PO SCH ×6 (01:20→21:24)
[2021-10-30] MEDS: Potassium Chloride 20 MEQ Tab.ER PO SCH ×2 (08:56→21:16)
[2021-10-30] MEDS: Cholecalciferol (Vitamin D3) 25 MCG Tab PO SCH (08:57)
[2021-10-30] MEDS: Hydrochlorothiazide 25 MG Tab PO SCH (08:57)
[2021-10-30] MEDS: Hydroxychloroquine 200 MG Tab PO SCH (08:57)
[2021-10-30] MEDS: Cyanocobalamin (Vitamin B12) 1,000 MCG Tab PO SCH (08:57)
[2021-10-30] MEDS ORDERED: Aspirin 81 MG Tab.EC PO SCH (09:00)
[2021-10-31] MEDS: Carbidopa/Levodopa 25-100 MG Tab PO SCH ×6 (01:55→21:40)
[2021-10-31] MEDS: Cyanocobalamin (Vitamin B12) 1,000 MCG Tab PO SCH (09:14)
[2021-10-31] MEDS: Hydroxychloroquine 200 MG Tab PO SCH (09:14)
[2021-10-31] MEDS: Hydrochlorothiazide 25 MG Tab PO SCH (09:14)
[2021-10-31] MEDS: Potassium Chloride 20 MEQ Tab.ER PO SCH ×2 (09:14→21:41)
[2021-10-31] MEDS: Cholecalciferol (Vitamin D3) 25 MCG Tab PO SCH (09:14)
[2021-11-01] MEDS: Carbidopa/Levodopa 25-100 MG Tab PO SCH ×6 (01:24→21:45)
[2021-11-01] MEDS: Hydrochlorothiazide 25 MG Tab PO SCH (08:37)
[2021-11-01] MEDS: Cyanocobalamin (Vitamin B12) 1,000 MCG Tab PO SCH (08:37)
[2021-11-01] MEDS: Hydroxychloroquine 200 MG Tab PO SCH (08:37)
[2021-11-01] MEDS: Potassium Chloride 20 MEQ Tab.ER PO SCH ×2 (08:37→21:45)
[2021-11-01] MEDS: Cholecalciferol (Vitamin D3) 25 MCG Tab PO SCH (08:38)
[2021-11-02] MEDS: Carbidopa/Levodopa 25-100 MG Tab PO SCH ×6 (01:31→22:10)
[2021-11-02] MEDS: Hydroxychloroquine 200 MG Tab PO SCH (08:25)
[2021-11-02] MEDS: Potassium Chloride 20 MEQ Tab.ER PO SCH ×2 (08:25→21:30)
[2021-11-02] MEDS: Hydrochlorothiazide 25 MG Tab PO SCH (08:25)
[2021-11-02] MEDS: Cyanocobalamin (Vitamin B12) 1,000 MCG Tab PO SCH (08:25)
[2021-11-02] MEDS: Cholecalciferol (Vitamin D3) 25 MCG Tab PO SCH (08:26)
[2021-11-03] MEDS: Carbidopa/Levodopa 25-100 MG Tab PO SCH ×6 (02:01→22:13)
[2021-11-03] MEDS: Hydroxychloroquine 200 MG Tab PO SCH (08:15)
[2021-11-03] MEDS: Cyanocobalamin (Vitamin B12) 1,000 MCG Tab PO SCH (08:15)
[2021-11-03] MEDS: Hydrochlorothiazide 25 MG Tab PO SCH (08:15)
[2021-11-03] MEDS: Cholecalciferol (Vitamin D3) 25 MCG Tab PO SCH (08:15)
[2021-11-03] MEDS: Potassium Chloride 20 MEQ Tab.ER PO SCH ×2 (08:15→20:10)
[2021-11-04] MEDS: Loperamide 2 MG Cap PO PRN (00:32)
[2021-11-04] MEDS: Carbidopa/Levodopa 25-100 MG Tab PO SCH ×6 (01:22→21:54)
[2021-11-04] MEDS: Hydroxychloroquine 200 MG Tab PO SCH (08:00)
[2021-11-04] MEDS: Cyanocobalamin (Vitamin B12) 1,000 MCG Tab PO SCH (08:00)
[2021-11-04] MEDS: Cholecalciferol (Vitamin D3) 25 MCG Tab PO SCH (08:00)
[2021-11-04] MEDS: Potassium Chloride 20 MEQ Tab.ER PO SCH ×2 (08:01→20:17)
[2021-11-04] MEDS: Hydrochlorothiazide 25 MG Tab PO SCH (10:53)
[2021-11-05] MEDS: Carbidopa/Levodopa 25-100 MG Tab PO SCH ×6 (01:58→21:21)
[2021-11-05] MEDS: Potassium Chloride 20 MEQ Tab.ER PO SCH ×2 (08:25→20:01)
[2021-11-05] MEDS: Hydroxychloroquine 200 MG Tab PO SCH (08:25)
[2021-11-05] MEDS: Cyanocobalamin (Vitamin B12) 1,000 MCG Tab PO SCH (08:25)
[2021-11-05] MEDS: Cholecalciferol (Vitamin D3) 25 MCG Tab PO SCH (08:25)
[2021-11-05] MEDS: Hydrochlorothiazide 25 MG Tab PO SCH (09:51)
[2021-11-06] MEDS: Carbidopa/Levodopa 25-100 MG Tab PO SCH ×6 (01:18→21:09)
[2021-11-06] MEDS: Hydrochlorothiazide 25 MG Tab PO SCH (08:40)
[2021-11-06] MEDS: Hydroxychloroquine 200 MG Tab PO SCH (08:40)
[2021-11-06] MEDS: Potassium Chloride 20 MEQ Tab.ER PO SCH ×2 (08:40→20:00)
[2021-11-06] MEDS: Cyanocobalamin (Vitamin B12) 1,000 MCG Tab PO SCH (08:40)
[2021-11-06] MEDS: Cholecalciferol (Vitamin D3) 25 MCG Tab PO SCH (08:40)
[2021-11-07] MEDS: Carbidopa/Levodopa 25-100 MG Tab PO SCH ×6 (01:08→21:30)
[2021-11-07] MEDS: Acetaminophen 325 MG Tab PO PRN ×3 (05:30→17:51)
[2021-11-07] MEDS: Hydrochlorothiazide 25 MG Tab PO SCH (09:17)
[2021-11-07] MEDS: Cyanocobalamin (Vitamin B12) 1,000 MCG Tab PO SCH (09:17)
[2021-11-07] MEDS: Cholecalciferol (Vitamin D3) 25 MCG Tab PO SCH (09:17)
[2021-11-07] MEDS: Potassium Chloride 20 MEQ Tab.ER PO SCH ×2 (09:17→20:05)
[2021-11-07] MEDS: Hydroxychloroquine 200 MG Tab PO SCH (09:17)
[2021-11-08] MEDS: Acetaminophen 325 MG Tab PO PRN ×2 (01:30→09:12)
[2021-11-08] MEDS: Carbidopa/Levodopa 25-100 MG Tab PO SCH ×6 (01:30→21:11)
[2021-11-08] MEDS: Cyanocobalamin (Vitamin B12) 1,000 MCG Tab PO SCH (09:12)
[2021-11-08] MEDS: Potassium Chloride 20 MEQ Tab.ER PO SCH ×2 (09:13→20:06)
[2021-11-08] MEDS: Hydroxychloroquine 200 MG Tab PO SCH (09:13)
[2021-11-08] MEDS: Hydrochlorothiazide 25 MG Tab PO SCH (09:13)
[2021-11-08] MEDS: Cholecalciferol (Vitamin D3) 25 MCG Tab PO SCH (09:14)
[2021-11-09] MEDS: Carbidopa/Levodopa 25-100 MG Tab PO SCH ×6 (01:30→21:01)
[2021-11-09] MEDS: Acetaminophen 325 MG Tab PO PRN ×2 (07:53→18:19)
[2021-11-09] MEDS: Cyanocobalamin (Vitamin B12) 1,000 MCG Tab PO SCH (08:01)
[2021-11-09] MEDS: Potassium Chloride 20 MEQ Tab.ER PO SCH ×2 (08:01→21:02)
[2021-11-09] MEDS: Cholecalciferol (Vitamin D3) 25 MCG Tab PO SCH (08:01)
[2021-11-09] MEDS: Hydrochlorothiazide 25 MG Tab PO SCH (08:01)
[2021-11-09] MEDS: Hydroxychloroquine 200 MG Tab PO SCH (08:01)
[2021-11-10] MEDS: Carbidopa/Levodopa 25-100 MG Tab PO SCH ×6 (01:50→21:10)
[2021-11-10] MEDS: Loperamide 2 MG Cap PO PRN (08:05)
[2021-11-10] MEDS: Cyanocobalamin (Vitamin B12) 1,000 MCG Tab PO SCH (09:22)
[2021-11-10] MEDS: Hydroxychloroquine 200 MG Tab PO SCH (09:22)
[2021-11-10] MEDS: Hydrochlorothiazide 25 MG Tab PO SCH (09:22)
[2021-11-10] MEDS: Potassium Chloride 20 MEQ Tab.ER PO SCH ×2 (09:22→20:07)
[2021-11-10] MEDS: Cholecalciferol (Vitamin D3) 25 MCG Tab PO SCH (09:22)
[2021-11-10] MEDS: Acetaminophen 325 MG Tab PO PRN (10:37)
[2021-11-11] MEDS: Carbidopa/Levodopa 25-100 MG Tab PO SCH ×6 (02:18→21:19)
[2021-11-11] MEDS: traMADol 50 MG Tab PO PRN ×2 (05:56→16:02)
[2021-11-11 07:01] LABS: ESTIMATED GFR 91 mL/min (>60)
[2021-11-11] MEDS: Cyanocobalamin (Vitamin B12) 1,000 MCG Tab PO SCH (08:46)
[2021-11-11] MEDS: Hydrochlorothiazide 25 MG Tab PO SCH (08:46)
[2021-11-11] MEDS: Cholecalciferol (Vitamin D3) 25 MCG Tab PO SCH (08:46)
[2021-11-11] MEDS: Hydroxychloroquine 200 MG Tab PO SCH (08:46)
[2021-11-11] MEDS: Potassium Chloride 20 MEQ Tab.ER PO SCH ×2 (08:46→21:20)
[2021-11-11] MEDS: Cyclobenzaprine 10 MG Tab PO SCH (21:18)
[2021-11-12] MEDS: Carbidopa/Levodopa 25-100 MG Tab PO SCH ×6 (02:02→22:01)
[2021-11-12] MEDS: traMADol 50 MG Tab PO PRN ×3 (02:15→18:57)
[2021-11-12] MEDS: Cholecalciferol (Vitamin D3) 25 MCG Tab PO SCH (08:21)
[2021-11-12] MEDS: Hydrochlorothiazide 25 MG Tab PO SCH (08:21)
[2021-11-12] MEDS: Potassium Chloride 20 MEQ Tab.ER PO SCH ×2 (08:21→20:37)
[2021-11-12] MEDS: Hydroxychloroquine 200 MG Tab PO SCH (08:21)
[2021-11-12] MEDS: Cyanocobalamin (Vitamin B12) 1,000 MCG Tab PO SCH (08:21)
[2021-11-12] MEDS: Cyclobenzaprine 10 MG Tab PO SCH (20:36)
[2021-11-13] MEDS: Carbidopa/Levodopa 25-100 MG Tab PO SCH ×6 (02:05→22:13)
[2021-11-13] MEDS: Hydroxychloroquine 200 MG Tab PO SCH (09:27)
[2021-11-13] MEDS: Potassium Chloride 20 MEQ Tab.ER PO SCH ×2 (09:28→20:12)
[2021-11-13] MEDS: Hydrochlorothiazide 25 MG Tab PO SCH (09:28)
[2021-11-13] MEDS: Cholecalciferol (Vitamin D3) 25 MCG Tab PO SCH (09:29)
[2021-11-13] MEDS: Cyanocobalamin (Vitamin B12) 1,000 MCG Tab PO SCH (09:29)
[2021-11-13] MEDS: Cyclobenzaprine 10 MG Tab PO SCH (20:11)
[2021-11-13] MEDS: traMADol 50 MG Tab PO PRN (23:13)
[2021-11-14] MEDS: Carbidopa/Levodopa 25-100 MG Tab PO SCH ×6 (01:09→21:06)
[2021-11-14] MEDS: Hydrochlorothiazide 25 MG Tab PO SCH (09:32)
[2021-11-14] MEDS: Hydroxychloroquine 200 MG Tab PO SCH (09:33)
[2021-11-14] MEDS: Cyanocobalamin (Vitamin B12) 1,000 MCG Tab PO SCH (09:33)
[2021-11-14] MEDS: Potassium Chloride 20 MEQ Tab.ER PO SCH ×2 (09:33→21:06)
[2021-11-14] MEDS: Cholecalciferol (Vitamin D3) 25 MCG Tab PO SCH (09:34)
[2021-11-14] MEDS: Cyclobenzaprine 10 MG Tab PO SCH (21:04)
[2021-11-14] MEDS: traMADol 50 MG Tab PO PRN (21:11)
[2021-11-15] MEDS: Carbidopa/Levodopa 25-100 MG Tab PO SCH ×6 (01:29→21:08)
[2021-11-15] MEDS: Hydroxychloroquine 200 MG Tab PO SCH (09:23)
[2021-11-15] MEDS: Hydrochlorothiazide 25 MG Tab PO SCH (09:23)
[2021-11-15] MEDS: Potassium Chloride 20 MEQ Tab.ER PO SCH ×2 (09:23→21:07)
[2021-11-15] MEDS: Cyanocobalamin (Vitamin B12) 1,000 MCG Tab PO SCH (09:24)
[2021-11-15] MEDS: Cholecalciferol (Vitamin D3) 25 MCG Tab PO SCH (09:24)
[2021-11-15] MEDS: traMADol 50 MG Tab PO PRN ×2 (11:13→21:08)
[2021-11-15] MEDS: Cyclobenzaprine 10 MG Tab PO SCH (21:06)
[2021-11-16] MEDS: Carbidopa/Levodopa 25-100 MG Tab PO SCH ×6 (01:30→22:07)
[2021-11-16] MEDS: Cyanocobalamin (Vitamin B12) 1,000 MCG Tab PO SCH (09:09)
[2021-11-16] MEDS: Potassium Chloride 20 MEQ Tab.ER PO SCH ×2 (09:09→22:06)
[2021-11-16] MEDS: Cholecalciferol (Vitamin D3) 25 MCG Tab PO SCH (09:09)
[2021-11-16] MEDS: Hydrochlorothiazide 25 MG Tab PO SCH (09:09)
[2021-11-16] MEDS: Hydroxychloroquine 200 MG Tab PO SCH (09:09)
[2021-11-16] MEDS: traMADol 50 MG Tab PO PRN ×2 (10:20→22:12)
[2021-11-16] MEDS: Cyclobenzaprine 10 MG Tab PO SCH (22:04)
[2021-11-17] MEDS: Carbidopa/Levodopa 25-100 MG Tab PO SCH ×3 (01:53→09:01)
[2021-11-17] MEDS: Hydroxychloroquine 200 MG Tab PO SCH (08:33)
[2021-11-17] MEDS: Potassium Chloride 20 MEQ Tab.ER PO SCH (08:33)
[2021-11-17] MEDS: Hydrochlorothiazide 25 MG Tab PO SCH (08:33)
[2021-11-17] MEDS: Cyanocobalamin (Vitamin B12) 1,000 MCG Tab PO SCH (08:34)
[2021-11-17] MEDS: Cholecalciferol (Vitamin D3) 25 MCG Tab PO SCH (08:35)
[2021-11-17 08:39] VITALS: BP 111/56; PULSE 63
== END 2021-11-17 13:05 | disposition home or self-care (01) | DRG 948 ==
LOC: FB.MS 10:04
PROVIDERS: ADMIT Family Medicine; ATTEND Student in an Organized Health Care Education/Training Program
DX: R53.1 Weakness (principal); E85.4 Organ-limited amyloidosis; I43 Cardiomyopathy in diseases classified elsewhere; I27.20 Pulmonary hypertension, unspecified; M53.3 Sacrococcygeal disorders, not elsewhere classified; R63.4 Abnormal weight loss; D64.9 Anemia, unspecified; M32.9 Systemic lupus erythematosus, unspecified; M06.9 Rheumatoid arthritis, unspecified; H54.7 Unspecified visual loss; I10 Essential (primary) hypertension; J44.9 Chronic obstructive pulmonary disease, unspecified; K57.90 Diverticulosis of intestine, part unspecified, without perforation or abscess without bleeding; R32 Unspecified urinary incontinence; M19.90 Unspecified osteoarthritis, unspecified site; M81.0 Age-related osteoporosis without current pathological fracture; G25.81 Restless legs syndrome; Z96.642 Presence of left artificial hip joint; Z85.820 Personal history of malignant melanoma of skin; Z85.3 Personal history of malignant neoplasm of breast; Z79.52 Long term (current) use of systemic steroids; Z79.82 Long term (current) use of aspirin; Z98.84 Bariatric surgery status; Z79.899 Other long term (current) drug therapy; Z91.030 Bee allergy status; Z91.040 Latex allergy status; I25.2 Old myocardial infarction; Z90.89 Acquired absence of other organs; Z90.49 Acquired absence of other specified parts of digestive tract; Z90.710 Acquired absence of both cervix and uterus
CPT/HCPCS: 36415; 72148; 72195; 72220; 80053; 85025; 97110-GO; 97110-GP; 97112-GP; 97116-GP; 97530-GO; 97530-GP; 97535-GO; 99305; 99309; 99315; A9270-GY; J7512

== ENCOUNTER 2022-01-03 10:10 | Emergency (ER) | payer MEDICARE, OTHER ==
[2022-01-03] MEDS ORDERED: Sodium Chloride 0.9% 1,000 ML IV ONE (10:58)
[2022-01-03 10:59] LABS: ESTIMATED GFR 38 mL/min (>60)
[2022-01-03] MEDS ORDERED: fentaNYL 100 MCG/2 ML SDV IVPUSH ONE ×2 (11:01→11:51)
[2022-01-03] MEDS ORDERED: Piperacillin/Tazobactam 3.375 GM in Sodium Chloride 0.9% 50 ML IV SCH (11:30)
[2022-01-03] MEDS ORDERED: Piperacillin/Tazobactam 3.375 GM in Sodium Chloride 0.9% 50 ML IV STA (11:32)
[2022-01-03 11:50] VITALS: BP 118/38; PULSE 65
[2022-01-03] MEDS ORDERED: VANCOmycin 1 GM/200 ML 1 GM in Premix Bag 1 BAG IV ONE (12:00)
[2022-01-03] MEDS ORDERED: Gabapentin 300 MG Cap PO ONE (13:33)
[2022-01-03] MEDS ORDERED: Norepinephrine 4 MG in Dextrose 5% in Water 246 ML IV SCH ×2 (15:00)
[2022-01-03] MEDS ORDERED: Heparin Sodium 5,000 Units/ML Vial IVPUSH ONE (15:15)
[2022-01-03] MEDS ORDERED: Heparin Sodium/0.45% NaCl 500 ML IV SCH (15:30)
== END 2022-01-03 16:28 ==
LOC: FB.ED 10:10
DX: A41.9 Sepsis, unspecified organism (principal); I21.4 Non-ST elevation (NSTEMI) myocardial infarction; R65.20 Severe sepsis without septic shock; I10 Essential (primary) hypertension; J44.9 Chronic obstructive pulmonary disease, unspecified; M06.9 Rheumatoid arthritis, unspecified; I49.8 Other specified cardiac arrhythmias; Z91.030 Bee allergy status; Z91.040 Latex allergy status; Z79.82 Long term (current) use of aspirin; Z79.899 Other long term (current) drug therapy
CPT/HCPCS: 36415; 71045; 80053; 83605; 83880; 84484; 85014; 85018; 85025; 87040; 87077; 87186; 93005; 93010; 96365; 96367; 96368; 96375; 96376; 99285; 99285-25; A9270-GY; J1644; J2543; J3010; J3370; J7030; J7060; Q3014